=== PATIENT | female | born 1980 | race African-American/Black ===

== ENCOUNTER 2020-02-17 14:13 | Emergency (ER) | payer SELFPAY ==
[2020-02-17 14:20] VITALS: BP 123/85; PULSE 90; RESP 16; TEMP 37.4; O2SAT 100
--- NOTE | 2020-02-17 14:29 | ED.EAR ---
HPI - Ear Problem General Chief complaint: Ear Stated complaint: earache Time Seen by Provider: 02/17/20 14:37 Source: patient and RN notes reviewed Mode of arrival: ambulatory Limitations: no limitations History of Present Illness HPI Narrative: 39-year-old female presents with concern for right ear pain, nasal congestion. Reports history of ear infections. Reports small amount of drainage from the right ear. Denies fever, malaise, cough, shortness of breath. MD Complaint: ear pain Related Data Allergies Allergy/AdvReac Type Severity Reaction Status Date / Time acetaminophen [From Percocet] Allergy Hives Verified 02/17/20 14:24 oxycodone [From Percocet] Allergy Hives Verified 02/17/20 14:24 Penicillins Allergy Hives Verified 02/17/20 14:24 Review of Systems Review of Systems: Narrative: CONSTITUTIONAL: Denies malaise, chills, sweats, or fever. EYES: Denies visual changes, redness, or discharge. ENT: Reports rhinorrhea, congestion, right otalgia. Denies sinus pain and sore throat. CARDIOVASCULAR: Denies chest pain, palpitations, or edema. RESPIRATORY: Denies cough dyspnea. GASTROINTESTINAL: Denies abdominal pain, nausea, vomiting, diarrhea SKIN: Denies rash or itching. MUSCULOSKELETAL: Denies myalgia. NEUROLOGIC: Denies headache. All systems reviewed & are unremarkable except as noted in HPI and below PMFSH Comments At time of signature, agree with nursing past medical, surgical, social and family history. There is no relevant family history pertinent to the presenting complaint Exam Narrative: Exam Narrative: GENERAL: Well-appearing, well-nourished, and in no acute distress. HEAD: Normocephalic EYES: PERRLA, conjunctivae clear ENT: Nares clear, turbinates edematous and erythematous, clear discharge. Mucous membranes moist. TM pearly vega with dull light reflex bilaterally; right tragal tenderness, mild edema in the auditory canal. Oropharynx not erythematous without lesions. Tonsils not enlarged and without exudate, no drooling, no hoarseness, no trismus, uvula midline. NECK: Supple. No lymphadenopathy CHEST: Clear to auscultation, breath sounds equal. No wheezing, rhonchi, rales, or stridor. No respiratory distress, speaks in full sentences. HEART: Regular rate and rhythm. No murmur heard. SKIN: Warm, dry, no rash. NEURO: Alert and oriented x3. PSYCH: Normal mood and affect Course Course Emergency Course: Patient is aware of diagnosis, understands and agrees to treatment plan. Anticipatory guidance given. Patient agrees to follow-up as directed and is aware of reasons to seek care at the emergency department. Portions of this record may have been created with voice recognition software Vital Signs Vital signs: Vital Signs Temperature 99.3 F 02/17/20 14:20 Pulse Rate 90 02/17/20 14:20 Respiratory Rate 16 02/17/20 14:20 Blood Pressure 123/85 02/17/20 14:20 Pulse Oximetry 100 02/17/20 14:20 Temperature 99.3 F 02/17/20 14:20 Pulse Rate 90 02/17/20 14:20 Respiratory Rate 16 02/17/20 14:20 Blood Pressure 123/85 02/17/20 14:20 Pulse Oximetry 100 02/17/20 14:20 Reviewed. Patient has been instructed to follow up with her primary care provider within the next week regarding her elevated blood pressure today. Medical Decision Making MDM Narrative Medical decision making narrative: Differential diagnosis considered: Strep pharyngitis, allergic rhinitis, upper respiratory tract infection, sinusitis, rhinosinusitis, nasopharyngitis. viral pharyngitis, otitis media, otitis externa, pneumonia, bronchitis, viral cough syndrome, viral syndrome, and influenza. Exam findings show no acute concerns or changes; patient is non-toxic appearing and is in no distress. Patient is appropriate for outpatient treatment and follow-up. Vital Signs Vital Signs: Vital Signs Temperature 99.3 F 02/17/20 14:20 Pulse Rate 90 02/17/20 14:20 Respiratory Rate 16 02/17/20 14:20 Blood Pressure 123/85 0
== END 2020-02-17 14:54 | disposition home or self-care (01) ==
PROVIDERS: Emergency Provider Nurse Practitioner
DX: H60.501 Unspecified acute noninfective otitis externa, right ear (principal); J01.90 Acute sinusitis, unspecified
CPT/HCPCS: 99213; G0463